=== PATIENT | male | born 1945 | race African-American/Black ===

== ENCOUNTER 2017-03-16 08:00 | Outpatient (CLI) | payer MEDICARE | END 2017-03-16 08:01 | disposition home or self-care (01) | LOC: BICMRI 08:00 | PROVIDERS: ATTEND Physical Medicine & Rehabilitation | DX: M54.5 Low back pain (principal); E88.2 Lipomatosis, not elsewhere classified; M46.86 Other specified inflammatory spondylopathies, lumbar region | CPT/HCPCS: 72148 ==

== ENCOUNTER 2017-04-25 13:44 | Outpatient (CLI) | payer MEDICARE | END 2017-04-25 13:45 | disposition home or self-care (01) | LOC: BICRAD 13:44 | PROVIDERS: ATTEND Physical Medicine & Rehabilitation | DX: M25.552 Pain in left hip (principal); M13.851 Other specified arthritis, right hip ==

== ENCOUNTER 2020-12-28 16:22 | Inpatient (IN) | payer MEDICARE ==
[2020-12-28 16:55] LABS: #Eosinphils 0.3 thou/uL (0.0-0.7); #Lymphocytes 3.7 thou/uL (1.20-3.40); #Monocytes 0.7 thou/uL (0.11-0.59); %Basophils 0.5 % (0.0-1.0); %Eosinophils 3.9 % (0.0-10.0); %Lymphocytes 42.3 % (21.0-51.0); %Monocytes 7.9 % (0.0-10.0); %Neutrophils 45.4 % (42.0-75.0); Hemoglobin 16.1 g/dL (14.0-18.0); Mean Corpuscular HGB CONC 33.4 g/dL (32.0-36.0); Mean Corpuscular Hemoglobin 31.5 pg (27.0-31.0); Mean Corpuscular Volume 94.3 fL (78.0-98.0); Mean Platelet Volume 8.8 fL (7.4-10.4); Platelet Count 201 thou/uL (130-400); Red Blood Cell (RBC) Count 5.12 mill/uL (4.70-6.10); White Blood Cell (WBC) Count 8.8 thou/uL (4.8-10.8)
[2020-12-28 17:14] LABS: ALT (SGPT) 39 U/L (8-55); AST (SGOT) 24 U/L (5-34); Albumin 3.8 g/dL (3.4-4.8); Alkaline Phosphatase 53 U/L (40-110); Anion Gap 13 mmol/L (10-20); BUN (Urea Nitrogen) 34 mg/dL (8.4-25.7); Bilirubin, Total 0.5 mg/dL (0.2-1.2); Calc. Creatinine Clearance 0 mL/min (70-130); Calcium 9.6 mg/dL (7.8-10.44); Carbon Dioxide 22 mmol/L (23-31); Chloride 111 mmol/L (98-107); Globulin 3.9 g/dL (2.4-3.5); Glucose 134 mg/dL (83-110); Potassium 4.9 mmol/L (3.5-5.1); Protein, Total 7.7 g/dL (5.8-8.1); Sodium 141 mmol/L (136-145)
[2020-12-28 17:37] LABS: CKMB 2.3 ng/mL (0-6.6)
[2020-12-28] MEDS ORDERED: Aspirin Chewable 81 MG TAB ONE (18:06)
[2020-12-28] MEDS ORDERED: Nitroglycerin 2% Ointment 1 INCH/1 GM Packet ONE (18:12)
[2020-12-28] MEDS ORDERED: Ondansetron ODT 4 MG TAB PO PRN (20:05)
[2020-12-28] MEDS ORDERED: HumaLOG 300 UNITS/3 ML VIAL SC PRN ×2 (20:05)
[2020-12-28] MEDS ORDERED: Dextrose 50% Abboject 50 ML SYRINGE SLOW IVP PRN (20:05)
[2020-12-28] MEDS ORDERED: Acetaminophen 325 MG TAB PO PRN (20:05)
[2020-12-28] MEDS ORDERED: Ondansetron PF 4 MG/2 ML Vial IVP PRN (20:05)
[2020-12-28] MEDS ORDERED: Dextrose 5% in Water 1,000 ML IV PRN (20:05)
[2020-12-28] MEDS ORDERED: Acetaminophen 650 MG Suppository PR PRN (20:05)
[2020-12-28] MEDS ORDERED: hydrALAZINE 20 MG/ML VIAL SLOW IVP PRN (20:09)
[2020-12-28 20:25] LABS: Troponin I 0.038 ng/mL (< 0.028)
[2020-12-28] MEDS: Atorvastatin Calcium 40 MG TAB PO SCH (20:49)
[2020-12-28] MEDS: Sodium Chloride 0.9% 1,000 ML IV SCH (20:49)
[2020-12-28 22:44] VITALS: BMI 27.6
[2020-12-28 23:42] LABS: Troponin I 0.047 ng/mL (< 0.028)
[2020-12-28 23:45] LABS: Bacteria/HPF None Seen HPF (None Seen); Bilirubin Negative (Negative); Blood, Urine Trace (Negative); Clarity Clear (Clear); Glucose, Urine (Dipstick) Greater than 1000 mg/dL (Negative); Ketone, Urine Negative (Negative); Leukocyte Negative Leu/uL (Negative); Nitrite Negative (Negative); Protein, Urine (Dipstick) 70 mg/dL (Neg-Trace); RBC/HPF 0-3 HPF (0-3); Specific Gravity, Urine 1.015 (1.002-1.036); Squamous Epithelial None Seen HPF (0-3); Urobilinogen Normal mg/dL (Less than 2); WBC/HPF 0-3 HPF (0-3); pH, Urine 5.5 (5.0-9.0)
[2020-12-28 23:47] LABS: Urine Culture Reflex No No
[2020-12-29 06:19] LABS: #Eosinphils 0.2 thou/uL (0.0-0.7); #Lymphocytes 3.2 thou/uL (1.20-3.40); #Monocytes 0.7 thou/uL (0.11-0.59); #Neutrophils 5.9 thou/uL (1.40-6.50); %Basophils 0.4 % (0.0-1.0); %Eosinophils 1.6 % (0.0-10.0); %Monocytes 7.4 % (0.0-10.0); %Neutrophils 58.7 % (42.0-75.0); Hemoglobin 13.8 g/dL (14.0-18.0); Mean Corpuscular HGB CONC 32.3 g/dL (32.0-36.0); Mean Corpuscular Hemoglobin 30.5 pg (27.0-31.0); Mean Corpuscular Volume 94.3 fL (78.0-98.0); Platelet Count 213 thou/uL (130-400); RBC Distribution Width 13.8 % (11.5-14.5); Red Blood Cell (RBC) Count 4.53 mill/uL (4.70-6.10); White Blood Cell (WBC) Count 10.1 thou/uL (4.8-10.8)
[2020-12-29 06:42] LABS: Anion Gap 9 mmol/L (10-20); BUN (Urea Nitrogen) 31 mg/dL (8.4-25.7); Calc. Creatinine Clearance 44 mL/min (70-130); Carbon Dioxide 25 mmol/L (23-31); Cardiac Risk 3.4 (Less than 4.5); Chloride 110 mmol/L (98-107); Cholesterol 114 mg/dl (< 200 Desired); Glucose 93 mg/dL (83-110); HDL Cholesterol 34 mg/dL (>60 Neg Risk); LDL Cholesterol, Calculated 54 mg/dL; Potassium 4.4 mmol/L (3.5-5.1); Sodium 140 mmol/L (136-145); Triglycerides 131 mg/dL (Less than 150)
[2020-12-29] MEDS ORDERED: Artificial Tear Sol 15 ML BOT EA EYE PRN (06:42)
[2020-12-29] MEDS ORDERED: Loperamide HCl 2 MG CAP PO PRN (06:42)
[2020-12-29] MEDS ORDERED: Sodium Chloride 0.65% Nasal 44 ML BOT EA NARE PRN (06:42)
[2020-12-29] MEDS ORDERED: Loratadine 10 MG TAB PO PRN (06:42)
[2020-12-29] MEDS ORDERED: Senokot S 8.6-50 MG TAB PO PRN (06:42)
[2020-12-29] MEDS ORDERED: Calcium Carbonate 500 MG ChewTAB PO PRN (06:42)
[2020-12-29] MEDS ORDERED: Zolpidem Tartrate 5 MG TAB PO PRN (06:42)
[2020-12-29] MEDS ORDERED: GUAIFENESIN SF SOLN 200 MG/10 ML UDCUP PO PRN (06:42)
[2020-12-29] MEDS ORDERED: Cepastat Lozenges 1 LOZ PO PRN (06:42)
[2020-12-29] MEDS ORDERED: Bisacodyl 5 MG TAB PO PRN (06:42)
[2020-12-29] MEDS ORDERED: Hydrocerin (Eucerin) Cream 120 gm Jar TOP PRN (06:42)
[2020-12-29] MEDS ORDERED: HYDROcodone/Acetaminophen 5/325 mg Tablet PO PRN (06:42)
[2020-12-29] MEDS ORDERED: hydrALAZINE 20 MG/ML VIAL SLOW IVP PRN (06:43)
[2020-12-29] MEDS: Aspirin 81 mg Enteric Coated Tablet PO SCH (09:33)
[2020-12-29] MEDS: Sodium Chloride 0.9% 1,000 ML IV SCH ×2 (09:34→12:05)
[2020-12-29 10:27] LABS: SARS-CoV-2 PCR by NAA Not Detected (NotDetected)
[2020-12-29] MEDS: Heparin 5,000 UNITS/ML VIAL SC SCH (21:18)
[2020-12-29] MEDS: Atorvastatin Calcium 40 MG TAB PO SCH (21:19)
[2020-12-30] MEDS: Sodium Chloride 0.9% 1,000 ML IV SCH ×2 (01:11→13:13)
[2020-12-30 05:55] LABS: #Eosinphils 0.2 thou/uL (0.0-0.7); #Lymphocytes 3.1 thou/uL (1.20-3.40); #Monocytes 0.6 thou/uL (0.11-0.59); #Neutrophils 4.5 thou/uL (1.40-6.50); %Basophils 0.5 % (0.0-1.0); %Eosinophils 2.8 % (0.0-10.0); %Lymphocytes 36.5 % (21.0-51.0); %Monocytes 7.4 % (0.0-10.0); %Neutrophils 52.8 % (42.0-75.0); Hemoglobin 14.1 g/dL (14.0-18.0); Mean Corpuscular HGB CONC 32.4 g/dL (32.0-36.0); Mean Corpuscular Hemoglobin 30.3 pg (27.0-31.0); Mean Corpuscular Volume 93.4 fL (78.0-98.0); Mean Platelet Volume 9.1 fL (7.4-10.4); Platelet Count 207 thou/uL (130-400); RBC Distribution Width 13.9 % (11.5-14.5); Red Blood Cell (RBC) Count 4.68 mill/uL (4.70-6.10); White Blood Cell (WBC) Count 8.6 thou/uL (4.8-10.8)
[2020-12-30 07:01] LABS: BUN (Urea Nitrogen) 23 mg/dL (8.4-25.7); Calc. Creatinine Clearance 45 mL/min (70-130); Calcium 8.5 mg/dL (7.8-10.44); Carbon Dioxide 22 mmol/L (23-31); Chloride 110 mmol/L (98-107); Glucose 123 mg/dL (83-110); Magnesium 1.9 mg/dL (1.6-2.6); Phosphorus 3.1 mg/dL (2.3-4.7); Potassium 4.4 mmol/L (3.5-5.1); Sodium 139 mmol/L (136-145)
[2020-12-30 07:52] LABS: Anion Gap 11 mmol/L (10-20)
[2020-12-30 07:57] VITALS: TEMP 97.8
[2020-12-30] MEDS: Aspirin 81 mg Enteric Coated Tablet PO SCH (08:43)
[2020-12-30] MEDS: Heparin 5,000 UNITS/ML VIAL SC SCH (08:44)
[2020-12-30] MEDS ORDERED: Amlodipine 10 MG TAB PO SCH (09:00)
[2020-12-30] MEDS ORDERED: Clopidogrel Bisulfate 75 MG TAB PO SCH (09:00)
[2020-12-30] MEDS ORDERED: Metoprolol Tartrate 25 MG TAB PO SCH ×2 (09:45→21:00)
[2020-12-30 16:13] VITALS: BP 173/91
== END 2020-12-30 15:53 | disposition home or self-care (01) | DRG 65 ==
LOC: ERS 16:22 → 3SE 18:37 → OBSVTOIN 12-29 09:31
PROVIDERS: ADMIT Internal Medicine; ATTEND Internal Medicine
DX: I63.311 Cerebral infarction due to thrombosis of right middle cerebral artery (principal); N17.9 Acute kidney failure, unspecified; I24.8 Other forms of acute ischemic heart disease; G81.91 Hemiplegia, unspecified affecting right dominant side; G81.94 Hemiplegia, unspecified affecting left nondominant side; E78.00 Pure hypercholesterolemia, unspecified; I16.0 Hypertensive urgency; E11.649 Type 2 diabetes mellitus with hypoglycemia without coma; N18.31 Chronic kidney disease, stage 3a; E11.22 Type 2 diabetes mellitus with diabetic chronic kidney disease; E78.5 Hyperlipidemia, unspecified; R47.81 Slurred speech; E11.21 Type 2 diabetes mellitus with diabetic nephropathy; W19.XXXA Unspecified fall, initial encounter; Z20.822 Contact with and (suspected) exposure to COVID-19; I12.9 Hypertensive chronic kidney disease with stage 1 through stage 4 chronic kidney disease, or unspecified chronic kidney disease; Z79.899 Other long term (current) drug therapy; Y92.008 Other place in unspecified non-institutional (private) residence as the place of occurrence of the external cause
CPT/HCPCS: 36415; 36416; 70450; 70551; 80048; 80053; 80061; 81001; 82553; 83735; 84100; 84484; 85025; 93005; 93306; 93880; G0378; J0360; J1644; J7050; U0003; U0005

== ENCOUNTER 2021-04-06 13:18 | Outpatient (CLI) | payer MEDICARE ==
[2021-04-06 15:36] LABS: #Eosinphils 0.1 10x3/uL (0.0-0.5); #Monocytes 0.7 10x3/uL (0.0-1.1); #Neutrophils 4.4 10x3/uL (1.5-8.4); %Basophils 0.4 % (0.0-2.0); %Eosinophils 1.7 % (0.0-6.0); %Lymphocytes 33.9 % (18.0-47.0); %Monocytes 9.1 % (0.0-10.0); %Neutrophils 54.7 % (40.0-75.0); Hemoglobin 15.4 g/dL (13.5-17.5); Mean Corpuscular HGB CONC 31.6 g/dL (32.0-36.0); Mean Corpuscular Hemoglobin 29.1 pg (27.0-33.0); Mean Corpuscular Volume 92.1 fl (81.2-95.1); Mean Platelet Volume 11.7 fl (7.4-10.4); Platelet Count 271 10x3/uL (150-450); RBC Distribution Width 15.5 % (11.5-14.5); Red Blood Cell (RBC) Count 5.29 10x6/uL (4.32-5.72)
[2021-04-06 15:46] LABS: ALT (SGPT) 42 U/L (8-55); AST (SGOT) 27 U/L (5-34); Alkaline Phosphatase 54 U/L (40-110); Anion Gap 13 mmol/L (10-20); BUN (Urea Nitrogen) 34 mg/dL (8.4-25.7); Bilirubin, Total 0.6 mg/dL (0.2-1.2); Calc. Creatinine Clearance 0 mL/min (70-130); Calcium 9.6 mg/dL (7.8-10.44); Carbon Dioxide 27 mmol/L (23-31); Chloride 106 mmol/L (98-107); Globulin 3.6 g/dL (2.4-3.5); Glucose 137 mg/dL (83-110); Protein, Total 7.6 g/dL (5.8-8.1); Sodium 141 mmol/L (136-145)
[2021-04-07 09:07] LABS: SARS-CoV-2 PCR by NAA Not Detected (NotDetected)
== END 2021-04-06 13:19 | disposition home or self-care (01) ==
LOC: LABBT 13:18
PROVIDERS: ATTEND Internal Medicine Cardiovascular Disease
DX: Z01.812 Encounter for preprocedural laboratory examination (principal); Z20.822 Contact with and (suspected) exposure to COVID-19
CPT/HCPCS: 80053; 85025; U0003; U0005

== ENCOUNTER 2021-06-17 11:27 | Observation (INO) | payer MEDICARE ==
[2021-06-17] MEDS ORDERED: Ondansetron ODT 4 MG TAB PO PRN (19:06)
[2021-06-17] MEDS ORDERED: Acetaminophen 325 MG TAB PO PRN (19:06)
[2021-06-17] MEDS ORDERED: Bisacodyl 5 MG TAB PO PRN (19:06)
[2021-06-17] MEDS ORDERED: Loperamide HCl 2 MG CAP PO PRN (19:06)
[2021-06-17] MEDS ORDERED: Zolpidem Tartrate 5 MG TAB PO PRN (19:06)
[2021-06-17] MEDS ORDERED: Senokot S 8.6-50 MG TAB PO PRN (19:06)
[2021-06-17 19:21] VITALS: BMI 27.1
[2021-06-17 19:25] LABS: #Basophils 0.1 thou/uL (0.0-0.2); #Eosinphils 0.2 thou/uL (0.0-0.7); #Lymphocytes 3.1 thou/uL (1.20-3.40); #Monocytes 0.6 thou/uL (0.11-0.59); #Neutrophils 3.9 thou/uL (1.40-6.50); %Basophils 0.9 % (0.0-1.0); %Eosinophils 2.7 % (0.0-10.0); %Lymphocytes 38.8 % (21.0-51.0); %Monocytes 8.2 % (0.0-10.0); %Neutrophils 49.4 % (42.0-75.0); Hemoglobin 16.1 g/dL (14.0-18.0); Mean Corpuscular HGB CONC 32.4 g/dL (32.0-36.0); Mean Corpuscular Hemoglobin 30.9 pg (27.0-31.0); Mean Corpuscular Volume 95.5 fL (78.0-98.0); Mean Platelet Volume 8.2 fL (7.4-10.4); Platelet Count 214 thou/uL (130-400); RBC Distribution Width 13.9 % (11.5-14.5); Red Blood Cell (RBC) Count 5.21 mill/uL (4.70-6.10); White Blood Cell (WBC) Count 7.9 thou/uL (4.8-10.8)
[2021-06-17] MEDS ORDERED: Communication Order-Pharmacy FS SCH (19:30)
[2021-06-17 19:45] LABS: ALT (SGPT) 32 U/L (8-55); AST (SGOT) 24 U/L (5-34); Albumin 3.9 g/dL (3.4-4.8); Alkaline Phosphatase 56 U/L (40-110); Anion Gap 16 mmol/L (10-20); BUN (Urea Nitrogen) 32 mg/dL (8.4-25.7); Bilirubin, Total 0.5 mg/dL (0.2-1.2); Calc. Creatinine Clearance 33 mL/min (70-130); Calcium 9.4 mg/dL (7.8-10.44); Carbon Dioxide 23 mmol/L (23-31); Chloride 107 mmol/L (98-107); Globulin 3.8 g/dL (2.4-3.5); Glucose 176 mg/dL (83-110); Potassium 4.5 mmol/L (3.5-5.1); Protein, Total 7.7 g/dL (5.8-8.1); Sodium 141 mmol/L (136-145)
[2021-06-17] MEDS: hydrALAZINE 25 MG TAB PO SCH (20:39)
[2021-06-17] MEDS: Sodium Chloride 0.9% 1,000 ML IV SCH (20:39)
[2021-06-17] MEDS ORDERED: Atorvastatin Calcium 40 MG TAB PO SCH (21:00)
[2021-06-17] MEDS ORDERED: Famotidine 20 MG TAB PO SCH (21:00)
[2021-06-18] MEDS: hydrALAZINE 25 MG TAB PO SCH ×2 (05:56→15:06)
[2021-06-18 06:58] LABS: Hemoglobin 15.6 g/dL (14.0-18.0); Mean Corpuscular HGB CONC 32.1 g/dL (32.0-36.0); Mean Corpuscular Hemoglobin 31.1 pg (27.0-31.0); Mean Platelet Volume 8.5 fL (7.4-10.4); Platelet Count 223 thou/uL (130-400); RBC Distribution Width 13.8 % (11.5-14.5); Red Blood Cell (RBC) Count 5.01 mill/uL (4.70-6.10); White Blood Cell (WBC) Count 6.3 thou/uL (4.8-10.8)
[2021-06-18 07:47] LABS: Chloride 112 mmol/L (98-107); Potassium 4.6 mmol/L (3.5-5.1); Sodium 140 mmol/L (136-145)
[2021-06-18 07:48] LABS: Calcium 8.7 mg/dL (7.8-10.44); Glucose 80 mg/dL (83-110)
[2021-06-18 07:50] LABS: Anion Gap 13 mmol/L (10-20); Carbon Dioxide 20 mmol/L (23-31)
[2021-06-18 07:51] LABS: Calc. Creatinine Clearance 43 mL/min (70-130)
[2021-06-18 07:52] LABS: BUN (Urea Nitrogen) 27 mg/dL (8.4-25.7)
[2021-06-18] MEDS ORDERED: Glimepiride 4 MG TAB PO SCH (08:00)
[2021-06-18] MEDS: Sodium Chloride 0.9% 1,000 ML IV SCH (08:07)
[2021-06-18] MEDS ORDERED: Nitroglycerin 100MG/250ML BOT 250 ML ONE (08:11)
[2021-06-18] MEDS ORDERED: Verapamil 5 MG/2 ML VIAL ONE (08:11)
[2021-06-18] MEDS ORDERED: Heparin 10,000 UNITS/ 10 ML VIAL ONE (08:11)
[2021-06-18] MEDS ORDERED: Midazolam HCl 2 mg/2 ml Vial ONE (08:45)
[2021-06-18] MEDS ORDERED: Fentanyl 100 MCG/2 ML VIAL ONE (08:45)
[2021-06-18] MEDS ORDERED: Iopamidol 370 76% 100 ML VIAL ONE (08:51)
[2021-06-18 08:52] LABS: Band 1 % (5-11); Eosinophils 3 % (0-10); Lymphocytes 34 % (21-51); MDiff Complete? YES; Monocytes 10 % (0-10); Neutrophil 52 % (42-75); RBC Morphology Normal
[2021-06-18] MEDS ORDERED: Multivit, Therapeutic 1 TAB PO SCH (09:00)
[2021-06-18] MEDS ORDERED: Empagliflozin 10 MG TAB PO SCH (09:00)
[2021-06-18] MEDS ORDERED: Aspirin 81 mg Enteric Coated Tablet PO SCH (09:00)
[2021-06-18] MEDS ORDERED: Fish Oil 1,000 MG CAP PO SCH (09:00)
[2021-06-18] MEDS ORDERED: Ezetimibe 10 MG TAB PO SCH (09:00)
[2021-06-18] MEDS ORDERED: Metoprolol Tartrate 25 MG TAB PO SCH (09:00)
[2021-06-18] MEDS ORDERED: Acetaminophen/Codeine 30-300mg Tablet PO PRN (09:33)
[2021-06-18] MEDS ORDERED: Sodium Chloride 0.9% 200 ML IV PRN (09:33)
[2021-06-18] MEDS ORDERED: Sodium Chloride 0.9% 1,000 ML IV SCH (09:45)
[2021-06-18 11:58] LABS: SARS-CoV-2 PCR by NAA Not Detected (NotDetected)
[2021-06-18 15:10] VITALS: BP 141/67
[2021-06-18 16:06] VITALS: TEMP 98
[2021-06-18] MEDS ORDERED: Famotidine 20 MG TAB PO SCH (21:00)
== END 2021-06-18 17:44 | disposition home or self-care (01) ==
LOC: INTOOBSV 17:03 → 2SW 17:03
PROVIDERS: ADMIT Internal Medicine Cardiovascular Disease; ATTEND Internal Medicine Cardiovascular Disease
PROC: 4A023N7 Measurement of Cardiac Sampling and Pressure, Left Heart, Percutaneous Approach (ICD-10-PCS; principal; 2021-06-17)
PROC: B2111ZZ Fluoroscopy of Multiple Coronary Arteries using Low Osmolar Contrast (ICD-10-PCS; 2021-06-17)
DX: I47.2 Ventricular tachycardia (principal); R94.39 Abnormal result of other cardiovascular function study; I12.9 Hypertensive chronic kidney disease with stage 1 through stage 4 chronic kidney disease, or unspecified chronic kidney disease; E11.22 Type 2 diabetes mellitus with diabetic chronic kidney disease; N18.9 Chronic kidney disease, unspecified; E78.5 Hyperlipidemia, unspecified; I48.0 Paroxysmal atrial fibrillation; Z79.01 Long term (current) use of anticoagulants; Z79.82 Long term (current) use of aspirin; Z79.84 Long term (current) use of oral hypoglycemic drugs; Z79.899 Other long term (current) drug therapy; Z20.822 Contact with and (suspected) exposure to COVID-19
CPT/HCPCS: 80048; 80053; 85007; 85025; 85027; 93458; U0003; U0005; 36415; 99153; G0378; G0379; J1644; J2250; J3010; J7050; Q9967